=== PATIENT | female | born 1945 | race Caucasian/White ===

== ENCOUNTER 2017-07-30 03:19 | Outpatient (CLI) | payer MEDICARE | END 2017-07-30 23:59 | disposition home or self-care (01) | LOC: DIABETIC 03:19 | PROVIDERS: ATTEND Specialist | DX: E11.65 Type 2 diabetes mellitus with hyperglycemia (principal) | CPT/HCPCS: G0108 ==

== ENCOUNTER 2017-08-27 12:19 | Outpatient (CLI) | payer MEDICARE ==
[~2017-08-27] VITALS: Ht 152.4 cm; Wt 65.8 kg
[2017-08-27 13:11] LABS: TOTAL HEMOGLOBIN 14.5 G/dl (12.0-16.0)
[2017-08-27] MEDS ORDERED: albuterol 2.5 MG/3 ML nebule NEB PRN (13:30)
== END 2017-08-27 23:59 | disposition home or self-care (01) ==
LOC: RT 12:19
PROVIDERS: ATTEND Internal Medicine Pulmonary Disease
DX: J44.9 Chronic obstructive pulmonary disease, unspecified (principal)
CPT/HCPCS: 85018; 94010; 94727; 94729; 94760

== ENCOUNTER 2017-09-30 02:13 | Outpatient (CLI) | payer MEDICARE | END 2017-09-30 23:59 | disposition home or self-care (01) | LOC: DIABETIC 02:13 | PROVIDERS: ATTEND Specialist | DX: E11.65 Type 2 diabetes mellitus with hyperglycemia (principal) | CPT/HCPCS: G0108 ==

== ENCOUNTER 2017-12-16 00:22 | Outpatient (CLI) | payer MEDICARE | END 2017-12-16 23:59 | disposition home or self-care (01) | LOC: DIABETIC 00:22 | PROVIDERS: ATTEND Specialist | DX: E11.65 Type 2 diabetes mellitus with hyperglycemia (principal) | CPT/HCPCS: G0108 ==

== ENCOUNTER 2019-03-02 02:51 | Outpatient (CLI) | payer MEDICARE | END 2019-03-02 23:59 | disposition home or self-care (01) | LOC: DIABETIC 02:51 | PROVIDERS: ATTEND Specialist | DX: E11.65 Type 2 diabetes mellitus with hyperglycemia (principal); Z79.84 Long term (current) use of oral hypoglycemic drugs; Z79.899 Other long term (current) drug therapy; Z88.2 Allergy status to sulfonamides | CPT/HCPCS: G0108 ==

== ENCOUNTER 2019-06-08 03:45 | Outpatient (CLI) | payer MEDICARE | END 2019-06-08 23:59 | disposition home or self-care (01) | LOC: DIABETIC 03:45 | PROVIDERS: ATTEND Specialist | DX: E11.65 Type 2 diabetes mellitus with hyperglycemia (principal); Z79.84 Long term (current) use of oral hypoglycemic drugs; Z79.899 Other long term (current) drug therapy; Z88.2 Allergy status to sulfonamides | CPT/HCPCS: G0108 ==

== ENCOUNTER 2020-03-14 07:12 | Day surgery (SDC) | payer MEDICARE ==
[2020-03-09 10:34] LABS: BASOPHILS # (AUTO) 0.1 X10'3 (0-0.2); EOSINOPHILS # (AUTO) 0.4 X10'3 (0-0.9); EOSINOPHILS % (AUTO) 4.6 % (0-6); HEMATOCRIT 43.8 % (35.0-45.0); HEMOGLOBIN 14.8 g/dl (12.0-16.0); LYMPHOCYTES # (AUTO) 1.4 X10'3 (1.1-4.8); LYMPHOCYTES % (AUTO) 16.3 % (21-51); MEAN CORPUSCULAR HEMOGLOBIN 30.9 PG (27.0-31.0); MEAN CORPUSCULAR HGB CONC 33.8 g/dL (33.0-36.5); MEAN CORPUSCULAR VOLUME 91.6 FL (78-98); MEAN PLATELET VOLUME 9.3 FL (7.4-10.4); MONOCYTES # (AUTO) 0.8 X10'3 (0-0.9); MONOCYTES % (AUTO) 8.9 % (2-12); NEUTROPHILS % (AUTO) 69.2 % (42-75); PLATELET COUNT 214 X10'3 (140-440); RED BLOOD COUNT 4.78 X10'6 (4.20-5.60); RED CELL DISTRIBUTION WIDTH 13.4 % (11.5-14.5); WHITE BLOOD COUNT 8.6 X10'3 (4.5-11.0)
[2020-03-09 10:47] LABS: PARTIAL THROMBOPLASTIN TIME 28 SECONDS (22-32)
[2020-03-09 11:04] LABS: ALANINE AMINOTRANSFERASE 52 U/L (12-78); ALBUMIN 3.8 G/DL (3.4-5.0); ALKALINE PHOSPHATASE 92 IU/L (46-116); ANION GAP 7 (8-16); ASPARTATE AMINO TRANSFERASE 42 U/L (10-37); BILIRUBIN,TOTAL 0.6 MG/DL (0.1-1.0); BLOOD UREA NITROGEN 11 MG/DL (7-18); BUN/CREATININE RATIO 10.2 (6.6-38.0); CALCIUM 9.7 MG/DL (8.5-10.1); CHLORIDE 105 MMOL/L (99-107); CREATININE 1.08 MG/DL (0.40-0.90); GLUCOSE 90 MG/DL (70-104); POTASSIUM 4.2 MMOL/L (3.5-5.1); SODIUM 140 MMOL/L (135-145); TOTAL CARBON DIOXIDE 28.3 MMOL/L (24-32); TOTAL PROTEIN 7.6 G/DL (6.4-8.2); eGFR 50 ML/MIN
[~2020-03-14] VITALS: Ht 152.4 cm; Wt 73.9 kg
[2020-03-14] VITALS (10 sets, daily range): BP systolic 105–123; BP diastolic 58–72
[2020-03-14] MEDS ORDERED: diphenhydrAMINE 25mg capsule PO PRN (08:20)
[2020-03-14] MEDS ORDERED: normal saline 1,000 ML IV SCH (08:20)
[2020-03-14] MEDS ORDERED: LORazepam 0.5 MG tablet PO PRN (08:20)
[2020-03-14] MEDS ORDERED: LIDOcaine/PRILOcaine 5gm cream TP ONE (08:25)
[2020-03-14] MEDS ORDERED: LEVO50TA66 PO (09:07)
[2020-03-14] MEDS ORDERED: HYDR-4353 PO (09:07)
[2020-03-14] MEDS ORDERED: OXYB5TAB16 PO (09:07)
[2020-03-14] MEDS ORDERED: AMLO10TA28 (09:07)
[2020-03-14] MEDS ORDERED: LOSA25TA96 PO (09:07)
[2020-03-14] MEDS ORDERED: LORA-269 PO (09:07)
[2020-03-14] MEDS ORDERED: CETI-90 PO (09:08)
[2020-03-14] MEDS ORDERED: DULA1.5P (09:08)
[2020-03-14] MEDS ORDERED: ASPI81TA52 PO (09:08)
[2020-03-14] MEDS ORDERED: PANT20TA2 PO (09:08)
[2020-03-14] MEDS ORDERED: ATOR40TA PO (09:08)
[2020-03-14] MEDS ORDERED: UBID100C16 PO (09:08)
[2020-03-14] MEDS ORDERED: METO-411 PO (09:13)
[2020-03-14] MEDS ORDERED: ALBU8HFA PO (09:13)
[2020-03-14] MEDS ORDERED: EZET10TA6 PO (09:13)
[2020-03-14] MEDS ORDERED: midazolam 2 mg/2 ml injection ONE ×2 (09:45→10:18)
[2020-03-14] MEDS ORDERED: verapamil 2.5 mg/ml inj IV ONE (09:45)
[2020-03-14] MEDS ORDERED: iohexol 350MG/ML 100ml bottle IV ONE (09:46)
[2020-03-14] MEDS ORDERED: fentaNYL/PF 50MCG/1 ML 2ML syringe ONE (09:46)
[2020-03-14] MEDS ORDERED: heparin 1,000unit/ml 10ml vial 10 ML ONE (09:46)
[2020-03-14] MEDS ORDERED: LIDOcaine 1% (10mg/ml)w/preservative injection 20ml MDV ONE (09:46)
[2020-03-14] MEDS ORDERED: nitroGLYCERIN-Tridil 50MG/D5W 250 ML IV ONE (09:46)
[2020-03-14] MEDS ORDERED: ondansetron/PF 4mg/2ml inj IV PRN (11:25)
[2020-03-14] MEDS ORDERED: nitroGLYCERIN 0.4mg SUBLingual tab SL PRN (11:30)
[2020-03-14] MEDS ORDERED: acetaminophen 325mg tablet PO PRN (11:30)
[2020-03-14] MEDS ORDERED: HYDROcodone/acetaminophen 10/325mg tab PO PRN (11:30)
[2020-03-14] MEDS ORDERED: OXAZEpam 15mg capsule PO PRN (11:30)
[2020-03-14] MEDS ORDERED: proCHLORperazine 10 MG/2 ml inj IV PRN (11:30)
[2020-03-14] MEDS ORDERED: HYDROcodone/acetaminophen 5mg/325mg tablet PO PRN (11:30)
--- NOTE | 2020-03-14 13:15 | NUR ---
VASCULAR BAND REMOVED, SITE CLEANSED WITH STERILE 4X4 AND NS. DRIED AND STERILE 2X2 AND TEGADERM APPLIED. FOLDED 4X4 AND COBAN APPLIED FOR SUPPORT AND COMFORT, PT AWARE THAT OUTER DRSG MAY BE REMOVED/AND REAPPLIED FOR COMFORT AND IS NOT A NECESSARY PART OF DRSG. PT STATES UNDERSTANDING. PT OOB AMBULATED/DRESSED. Addendum: 03/14/20 at 1815 by Tala Alejandro RN Amended: Links added.
== END 2020-03-14 14:15 | disposition home or self-care (01) ==
LOC: SSTAY O 07:12
PROVIDERS: ATTEND Student in an Organized Health Care Education/Training Program
DX: R94.39 Abnormal result of other cardiovascular function study (principal); R07.89 Other chest pain; I25.10 Atherosclerotic heart disease of native coronary artery without angina pectoris; E11.9 Type 2 diabetes mellitus without complications; I10 Essential (primary) hypertension; E03.9 Hypothyroidism, unspecified; J45.909 Unspecified asthma, uncomplicated; I65.23 Occlusion and stenosis of bilateral carotid arteries; Z86.73 Personal history of transient ischemic attack (TIA), and cerebral infarction without residual deficits; Z95.0 Presence of cardiac pacemaker; Z79.899 Other long term (current) drug therapy; Z79.82 Long term (current) use of aspirin; Z88.2 Allergy status to sulfonamides; Z88.8 Allergy status to other drugs, medicaments and biological substances; Z79.84 Long term (current) use of oral hypoglycemic drugs
CPT/HCPCS: 36415; 80053; 82948; 85025; 85610; 85730; 93005; 93458; 99152; 99153; C1769; C1894; J1644; J2001; J2250; J3010; Q9967; A4620; J3490